=== PATIENT | female | born 1945 | race Caucasian/White ===

== ENCOUNTER → 2021-03-21 13:49 | Outpatient (REF) | payer MEDICARE, SELFPAY | LOC: ANHLAB 13:49 | PROVIDERS: PCP Nurse Practitioner Family; Visit Provider Nurse Practitioner | DX: D48.5 Neoplasm of uncertain behavior of skin (principal) | CPT/HCPCS: 88305 ==

== ENCOUNTER → 2021-04-24 08:25 | Outpatient (REF) | payer MEDICARE, SELFPAY | LOC: ANHLAB 08:25 | PROVIDERS: PCP Nurse Practitioner Family; Visit Provider Nurse Practitioner | DX: C44.319 Basal cell carcinoma of skin of other parts of face (principal) | CPT/HCPCS: 88305; 88331 ==